=== PATIENT | male | born 1995 | race African-American/Black ===

== ENCOUNTER 2017-07-26 17:00 | Emergency (ER) | payer SELFPAY | END 2017-07-26 17:30 | disposition home or self-care (01) | LOC: ER 17:30 | DX: H01.004 Unspecified blepharitis left upper eyelid (principal) | CPT/HCPCS: 99283 ==

== ENCOUNTER 2017-09-10 12:11 | Emergency (ER) | payer SELFPAY | END 2017-09-10 13:00 | disposition home or self-care (01) | LOC: ER 12:11 | DX: M54.2 Cervicalgia (principal); R06.7 Sneezing; R09.81 Nasal congestion; F17.210 Nicotine dependence, cigarettes, uncomplicated | CPT/HCPCS: 99283 ==

== ENCOUNTER 2019-10-09 18:08 | Emergency (ER) | payer SELFPAY ==
[~2019-10-09] VITALS: Ht 177.8 cm; Wt 69.1 kg
[~2019-10-09 18:08] MED LIST: AZIT250T PO; ERYT1OIN6 OP; TRAM-48 PO
[2019-10-09] MEDS ORDERED: NAPROXEN 500 MG TABLET PO STA (19:38)
[2019-10-09] MEDS ORDERED: NAPR-514 PO (21:01)
--- NOTE | 2019-10-09 21:02 | PHYS DOC ---
Past Medical History Past Medical History: Other Additional Past Medical Histor: heart murmur Past Surgical History: No Surgical History Smoking Status: Current Every Day Smoker Alcohol Use: Occasionally Drug Use: None General Adult EDM: Chief Complaint: UPPER EXTREMITY PAIN HPI: HPI: Patient is a 24 year old AA male who presents to the emergency department with complaints of pain in his right wrist for the last 3 days. Patient states that 4 days ago he started to fall and used his right hand to catch himself against a wall. Patient reports that is the only recent injury that he has had to the affected hand. He denies any erythema, swelling, warmth, numbness, or tingling of the right hand or wrist. Patient reports that the pain increases with movement. He reports that the pain is a 1 out of 10 on the pain scale at rest however with movement it shoots to a 10 out of 10. Patient reports that he is tried Johnny wrap and applying icy hot to the affected area with no significant benefit or reduction in discomfort. Patient reports that he needs a work excuse. Review of Systems: Review of Systems: Constitutional: Denies fever or chills. [] Musculoskeletal: See HPI Integument: Denies rash, erythema, or bruising. [] Neurologic: Denies focal weakness or sensory changes. [] Psychiatric: Denies depression or anxiety. [] Heart Score: Risk Factors: Risk Factors: DM, Current or recent (<one month) smoker, HTN, HLP, family history of CAD, obesity. Risk Scores: Score 0 - 3: 2.5% MACE over next 6 weeks - Discharge Home Score 4 - 6: 20.3% MACE over next 6 weeks - Admit for Clinical Observation Score 7 - 10: 72.7% MACE over next 6 weeks - Early Invasive Strategies Current Medications: Current Medications Medications (Trade) Dose Ordered Sig/Lyubov Start Time Stop Time Status Last Admin Dose Admin Naproxen (Naprosyn) 500 mg 1X STAT 10/09/19 19:38 10/09/19 19:47 DC 10/09/19 20:04 500 MG Allergies: Allergies: Allergies Coded Allergies Type Severity Reaction Last Updated Verified No Known Drug Allergies 07/26/17 No Physical Exam: PE: Constitutional: Well developed, well nourished, no acute distress, non-toxic appearance. [] HENT: Normocephalic, atraumatic, bilateral external ears normal, nose normal. [] Eyes: PERRLA, EOMI, conjunctiva normal, no discharge. [] Neck: Normal range of motion, no stridor. [] Cardiovascular:Heart rate regular rhythm Lungs & Thorax: Respirations even and unlabored, no retractions, no respiratory distress Skin: Warm, dry, no erythema, no rash. [] Extremities: Right wrist: No bony tenderness, no edema, no erythema, no warmth, increased pain with range of motion, full extension and flexion of right wrist, PMS intact no cyanosis Neurologic: Alert and oriented X 3, no focal deficits noted. [] Psychologic: Affect normal, judgement normal, mood normal. [] Current Patient Data: Vital Signs: Vital Signs Date Time Temp Pulse Resp B/P (MAP) Pulse Ox O2 Delivery O2 Flow Rate FiO2 10/09/19 19:19 97.8 87 20 154/97 (116) 97 Room Air 97.8 EKG: EKG: [] Radiology/Procedures: Radiology/Procedures: PROCEDURE: WRIST 3V RIGHT PROCEDURE: WRIST 3V RIGHT STUDY DATE: 10/09/2019 CLINICAL INDICATION / HISTORY: Reason: R wrist pain for the last 4 days / Spl. Instructions: / History: . TECHNIQUE: 3 views right wrist. COMPARISON: None FINDINGS: The radiocarpal and intracarpal relationships are maintained. There is no fracture or dislocation. The bone density is normal. Minimal edema in the soft tissues superficial to the radial metaphysis and distal diaphysis is present.. IMPRESSION: No acute osseous abnormality.[] Course & Med Decision Making: Course & Med Decision Making Pertinent Labs and Imaging studies reviewed. (See chart for details) 24-year-old male presents to the emergency aid with complaints of right wrist pain for 3 days. X-ray revealed no acute findings. The patient was placed in a Velcro wrist splint. He was encouraged to take Tylenol or ibuprofen as needed for pain, recommend application of ice as needed for comfort. Follow-up with Ortho if symptoms persist, return to the ER symptoms worsen. Patient verbalized an understanding of home care, medications, follow-up, and return to ED instructions and was in agreement with the plan of care. [] Dragon Disclaimer: Dragon Disclaimer: This electronic medical record was generated, in whole or in part, using a voice recognition dictation system. Departure Departure Impression: Primary Impression: Acute pain of right wrist Disposition: HOME, SELF-CARE Condition: STABLE Referrals: NO PCP (PCP) TREVA KERNS MD Patient Instructions: Wrist Pain, [id number], Wrist Splint, [id number] Additional Instructions: Fill prescription(s) and use as directed. Recommend application of ice, elevation, and rest of affected extremity. Wear the splint that was placed until follow up appointment. Follow-up with Dr. Kerns next week if symptoms persist, return to the ER if your symptoms worsen. Scripts Naproxen (NAPROXEN) 500 Mg Tablet 1 TAB PO BID PRN for PAIN for 10 Days, #20 TAB 0 Refills Prov: MIKEY RAMIREZ APRN 10/09/19 Justicifation of Admission Dx: Justifications for Admission: Justification of Admission Dx: N/A Splinting Splinting : Location: Right wrist Pre-Made Type: velcro (Velcro wrist splint) Pre-Proc Neuro Vasc Exam: normal Post-Proc Neuro Vasc Exam: normal, unchanged from pre-exam MIKEY RAMIREZ FOREST EXAMINER Oct 09, 2019 21:02
[2019-10-09 21:14] VITALS: BP 147/94
--- NOTE | 2019-10-09 21:30 | RAD ---
PROCEDURE: WRIST 3V RIGHT STUDY DATE: 10/09/2019 CLINICAL INDICATION / HISTORY: Reason: R wrist pain for the last 4 days / Spl. Instructions: / History: . TECHNIQUE: 3 views right wrist. COMPARISON: None FINDINGS: The radiocarpal and intracarpal relationships are maintained. There is no fracture or dislocation. The bone density is normal. Minimal edema in the soft tissues superficial to the radial metaphysis and distal diaphysis is present.. IMPRESSION: No acute osseous abnormality. Electronically signed by: Jose Alberto Norman MD (10/09/2019 9:27 PM) [facility] [place]
== END 2019-10-09 21:14 | disposition home or self-care (01) ==
LOC: ER 18:08
DX: M25.531 Pain in right wrist (principal); R60.0 Localized edema; F17.200 Nicotine dependence, unspecified, uncomplicated
CPT/HCPCS: 29125; 73110; 99284

== ENCOUNTER 2020-02-29 14:27 | Emergency (ER) | payer SELFPAY ==
[~2020-02-29] VITALS: Ht 170.2 cm; Wt 72.2 kg
[~2020-02-29 14:27] MED LIST changes: +NAPR-514 PO
[2020-02-29] MEDS ORDERED: LIDOCAINE 1% PF 2 ML VIAL. INJ ONE (15:30)
[2020-02-29] MEDS ORDERED: NAPROXEN 500 MG TABLET PO STA (16:14)
[2020-02-29] MEDS ORDERED: HYDROcodone/APAP 5/325MG 1 TAB TABLET PO ONE (16:15)
--- NOTE | 2020-02-29 16:17 | PHYS DOC ---
Past Medical History Past Medical History: No Pertinent History Additional Past Medical Histor: heart murmur (ANTWAN VILLAR APRN) Past Surgical History: No Surgical History (ANTWAN VILLAR APRN) Smoking Status: Current Some Day Smoker Alcohol Use: Occasionally Drug Use: None (ANTWAN VILLAR APRN) General Adult EDM: Chief Complaint: FOREIGNBODY EAR HPI: HPI: Patient is a 24 year old male patient presenting to the ED today complaining of a foreign object in the left ear canal. Patient states yesterday he was using a Q-tip to clean his left ear and the tip of the Q-tip got stuck in the left ear. He states he tried removing it with no success. He is complaining of mild intermittent sharp pain to the left ear. Denies hearing loss. (ANTWAN VILLAR APRN) Review of Systems: Review of Systems: Constitutional: Denies fever or chills. [] HENT: Reports Q-tip to the left ear canal. Denies nasal congestion or sore throat. [] Musculoskeletal: Denies back pain or joint pain. [] Integument: Denies rash. [] Neurologic: Denies headache, focal weakness or sensory changes. [] Psychiatric: Denies depression or anxiety. [] (ANTWAN VILLAR APRN) Heart Score: Risk Factors: Risk Factors: DM, Current or recent (<one month) smoker, HTN, HLP, family history of CAD, obesity. Risk Scores: Score 0 - 3: 2.5% MACE over next 6 weeks - Discharge Home Score 4 - 6: 20.3% MACE over next 6 weeks - Admit for Clinical Observation Score 7 - 10: 72.7% MACE over next 6 weeks - Early Invasive Strategies (ANTWAN VILLAR APRN) Current Medications: Current Medications Medications (Trade) Dose Ordered Sig/Lyubov Start Time Stop Time Status Last Admin Dose Admin Lidocaine HCl (Xylocaine-Mpf 1% 2ml Vial) 2 ml 1X ONCE 02/29/20 15:30 02/29/20 15:31 DC 02/29/20 15:31 2 ML (ANTWAN VILLAR APRN) Allergies: Allergies: Allergies Coded Allergies Type Severity Reaction Last Updated Verified No Known Drug Allergies 07/26/17 No (ANTWAN VILLAR APRN) Physical Exam: PE: Constitutional: Well developed, well nourished, no acute distress, non-toxic appearance. [] HENT: Normocephalic, atraumatic, bilateral external ears normal, oropharynx moist, no oral exudates, nose normal. [] Left eardrum appears to have a white object suspicious of Q-tip Skin: Warm, dry, no erythema, no rash. [] Back: No tenderness, no CVA tenderness. [] Extremities: No tenderness, no cyanosis, no clubbing, ROM intact, no edema. [] Neurologic: Alert and oriented X 3, normal motor function, normal sensory function, no focal deficits noted. [] Psychologic: Affect normal, judgement normal, mood normal. [] (ANTWAN VILLAR APRN) Current Patient Data: Vital Signs: Vital Signs Date Time Temp Pulse Resp B/P (MAP) Pulse Ox O2 Delivery O2 Flow Rate FiO2 02/29/20 15:15 97.0 87 16 99 Room Air 97.0 (ANTWAN VILLAR APRN) EKG: EKG: [] (ANTWAN VILLAR APRN) Radiology/Procedures: Radiology/Procedures: Indication: Q-tip in the left ear Procedure: The area of the foreign body was left ear. Local anesthesia over the foreign body site was 1% of lidocaine. Forceps was attempted to remove the foreign object with no success, curette was also tried with no success, ear was flushed with no success. Patient unable to tolerate the process The patient tolerated the procedure well Complications: None (ANTWAN VILLAR APRN) Course & Med Decision Making: Course & Med Decision Making Pertinent Labs and Imaging studies reviewed. (See chart for details) This is a 24-year-old male patient presented to the ED today complaining of a Q- tip stuck in the left ear canal since yesterday. Left ear canal is examined in the ED, it appears to have a white object on the eardrum. We tried to remove it unsuccessfully. Even tried flushing the ear with no success. Patient cannot tolerate the discomfort despite putting lidocaine in the ear canal. Provided ENT for follow-up. (ANTWAN VILLAR APRN) [place] Disclaimer: Dragon Disclaimer: This electronic medical record was generated, in whole or in part, using a voice recognition dictation system. (ANTWAN VILLAR APRN) Departure Departure Impression: Primary Impression: Foreign body of ear, left Qualified Codes: T16.2XXA - Foreign body in left ear, initial encounter Disposition: 01 DC HOME SELF CARE/HOMELESS Condition: STABLE Referrals: NO PCP (PCP) call her office tomorrow and set up a follow up appointment CLARISSA VILLAFANA MD Patient Instructions: Ear Foreign Body, [id number] Additional Instructions: You have a possible Q-tip end in your left ear canal. Please contact the provided ENT doctor tomorrow and set up a follow-up appointment. Scripts Naproxen (NAPROXEN) 500 Mg Tablet 1 TAB PO BID for pain, #20 TAB 0 Refills Prov: ANTWAN VILLAR EMISSIONS ENGINEER 02/29/20 Hydrocodone Bit/Acetaminophen (HYDROCODONE-APAP 5-325 ) 1 Tab Tablet 1 TAB PO PRN Q6HRS PRN for PAIN, #6 TAB 0 Refills Prov: ANTWAN VILLAR APRN 02/29/20 Attending Signature Attending Signature I have reviewed the PA/SOLE LEVELER's note and plan of care. I was available for consultation as needed during the patient's visit in the emergency department. I agree with the clinical impression, plan, and disposition. (JAIME WASHINGTON DO) ANTWAN VILLAR APRN Feb 29, 2020 16:17 JAIME WASHINGTON DO Feb 29, 2020 17:48
[2020-02-29] MEDS ORDERED: NAPR-514 PO (16:25)
[2020-02-29] MEDS ORDERED: HYDR-2761 PO (16:25)
== END 2020-02-29 16:59 | disposition home or self-care (01) ==
LOC: ER 14:27
DX: T16.2XXA Foreign body in left ear, initial encounter (principal); F17.200 Nicotine dependence, unspecified, uncomplicated; W45.8XXA Other foreign body or object entering through skin, initial encounter; Y93.89 Activity, other specified; Y92.89 Other specified places as the place of occurrence of the external cause; Y99.8 Other external cause status
CPT/HCPCS: 96372; 99284; J3490

== ENCOUNTER 2020-05-28 08:43 | Emergency (ER) | payer SELFPAY ==
[~2020-05-28] VITALS: Ht 185.4 cm; Wt 72.0 kg
[~2020-05-28 08:43] MED LIST changes: +HYDR-2761 PO
[2020-05-28 08:47] VITALS: BP 165/102
--- NOTE | 2020-05-28 09:18 | RAD ---
Exam Date: 05/28/2020 8:58 AM XR EXAM OF ANKLE_RIGHT 3VIEWS, XR FOOT_RIGHT 3 VIEWS Indication: Reason: inversion injury, pain / Spl. Instructions: / History: FINDINGS/ IMPRESSION: Ankle mortise is intact. No acute fracture or dislocation. Alignment and joint spaces are maintained. The soft tissues are w ithin normal limits. Electronically signed by: Baljinder Gtz MD (05/28/2020 9:16 AM) [id number]
--- NOTE | 2020-05-28 09:43 | ED.ADGEN ---
Past Medical History Past Medical History: No Pertinent History Additional Past Medical Histor: heart murmur Past Surgical History: No Surgical History Smoking Status: Current Some Day Smoker Alcohol Use: Occasionally Drug Use: None General Adult EDM: Chief Complaint: ANKLE PROBLEM HPI: HPI: Patient is a 24 year old male presents with right foot and ankle pain. Patient states last night he was dancing and had an inversion of his right foot and then fell onto his right ankle. Patient is using crutches to ambulate. No other injuries. States he otherwise has been well. Denies any paresthesias or numbness in that foot. Review of Systems: Review of Systems: All other systems within normal limits except for as noted in the HPI Current Medications: Current Medications Medications (Trade) Dose Ordered Sig/Lyubov Start Time Stop Time Status Last Admin Dose Admin Acetaminophen/ Hydrocodone Bitart (Lortab 5/325) 1 tab 1X ONCE 05/28/20 09:00 05/28/20 09:04 DC Allergies: Allergies: Allergies Coded Allergies Type Severity Reaction Last Updated Verified No Known Drug Allergies 07/26/17 No Physical Exam: PE: Constitutional: Well developed, well nourished, no acute distress, non-toxic appearance. [] HENT: Normocephalic, atraumatic, bilateral external ears normal, nose normal. [] Eyes: PERRLA, conjunctiva normal, no discharge. [] Neck: No rigidity, supple, no stridor. [] Cardiovascular: Regular rate and rhythm, brisk cap refill [] Lungs & Thorax: Non labored symmetric respirations, no tachypnea or respiratory distress [] Abdomen: Soft, nondistended. Skin: Warm, dry, no erythema, no rash. [] Back: Unremarkable Extremities: No deformities, range of motion grossly intact, no lower extremity edema. Right foot and ankle exam: Tenderness over lateral malleolus and dorsum of the foot, no deformities or defects, minimal swelling. No tenderness over heel, medial malleolus, or fifth metatarsal. [] Neurologic: Alert and oriented X 3, no focal deficits noted. [] Psychologic: Affect normal, judgement normal, mood normal. [] Current Patient Data: Vital Signs: Vital Signs Date Time Temp Pulse Resp B/P (MAP) Pulse Ox O2 Delivery O2 Flow Rate FiO2 05/28/20 08:47 98.7 80 20 165/102 (123) 97 Room Air 98.7 EKG: EKG: [] Heart Score: C/O Chest Pain: No Risk Factors: Risk Factors: DM, Current or recent (<one month) smoker, HTN, HLP, family history of CAD, obesity. Risk Scores: Score 0 - 3: 2.5% MACE over next 6 weeks - Discharge Home Score 4 - 6: 20.3% MACE over next 6 weeks - Admit for Clinical Observation Score 7 - 10: 72.7% MACE over next 6 weeks - Early Invasive Strategies Radiology/Procedures: Radiology/Procedures: Exam Date: 05/28/2020 8:58 AM XR EXAM OF ANKLE_RIGHT 3VIEWS, XR FOOT_RIGHT 3 VIEWS Indication: Reason: inversion injury, pain / Spl. Instructions: / History: FINDINGS/ IMPRESSION: Ankle mortise is intact. No acute fracture or dislocation. Alignment and joint spaces are maintained. The soft tissues are within normal limits. [] Course & Med Decision Making: Course & Med Decision Making Pertinent Labs and Imaging studies reviewed. (See chart for details) [] Dragon Disclaimer: Dragon Disclaimer: This electronic medical record was generated, in whole or in part, using a voice recognition dictation system. Departure Departure Impression: Primary Impression: Right ankle sprain Disposition: 01 DC HOME SELF CARE/HOMELESS Condition: STABLE Referrals: NO PCP (PCP) Additional Instructions: Use ice to reduce swelling and pain. May take Tylenol and ibuprofen as needed for pain RUPA QUIÑONEZ MD May 28, 2020 09:43
[2020-05-28] MEDS: HYDROcodone/APAP 5/325MG 1 TAB TABLET PO ONE (10:04)
== END 2020-05-28 10:19 | disposition home or self-care (01) ==
LOC: ER 08:43
DX: S93.491A Sprain of other ligament of right ankle, initial encounter (principal); M79.671 Pain in right foot; Z87.891 Personal history of nicotine dependence; W18.39XA Other fall on same level, initial encounter; Y93.89 Activity, other specified; Y92.89 Other specified places as the place of occurrence of the external cause; Y99.8 Other external cause status
CPT/HCPCS: 73610; 73630; 99284